=== PATIENT | female | born 1995 | race Caucasian/White ===

== ENCOUNTER 2016-10-13 17:26 | Emergency (ER) | payer OTHER ==
[~2016-10-13] VITALS: Ht 165.1 cm; Wt 56.6 kg
[2016-10-13 17:32] VITALS: BP 120/75
[2016-10-13] MEDS ORDERED: LIDOCAINE 1%, 20ML ONE (18:12)
[2016-10-13] MEDS ORDERED: LIDOCAINE 1%, 20ML INFIL ONE (18:30)
[2016-10-13] MEDS ORDERED: BACITRACIN ZINC OINT 500U/GM, 0.9 GM ONE (18:47)
== END 2016-10-13 18:56 | disposition home or self-care (01) ==
LOC: ED 18:50
DX: S61.412A Laceration without foreign body of left hand, initial encounter (principal); Z88.1 Allergy status to other antibiotic agents; W26.0XXA Contact with knife, initial encounter; Y93.89 Activity, other specified; Y99.8 Other external cause status; Y92.89 Other specified places as the place of occurrence of the external cause
CPT/HCPCS: 12001; 99283

== ENCOUNTER 2017-08-14 20:16 | Emergency (ER) | payer OTHER ==
[~2017-08-14] VITALS: Ht 165.1 cm; Wt 56.7 kg
[2017-08-14 20:24] VITALS: BP 134/85
[2017-08-14] MEDS ORDERED: LIDOCAINE 1%, 20ML INFIL ONE (22:00)
[2017-08-14] MEDS ORDERED: BACITRACIN ZINC OINT 500U/GM, 0.9 GM ONE (22:45)
== END 2017-08-14 22:52 | disposition home or self-care (01) ==
LOC: ED 22:41
DX: S61.215A Laceration without foreign body of left ring finger without damage to nail, initial encounter (principal)
CPT/HCPCS: 12001; 99283; J3490